=== PATIENT | female | born 1985 | race Caucasian/White ===

== ENCOUNTER 2017-08-21 07:40 | Day surgery (SDC) | payer BC ==
[2017-08-21] MEDS ORDERED: Sodium Chloride 0.9% 10 ML Syringe FLUSH PRN (07:45)
[2017-08-21] MEDS ORDERED: Lactated Ringers 1,000 ML IV SCH (07:45)
[2017-08-21] MEDS ORDERED: Lidocaine 2% 100 MG/5 ML Syringe IVPUSH ONE (09:15)
[2017-08-21] MEDS ORDERED: Propofol 200 MG/20 ML SDV IV ONE (09:15)
--- NOTE | 2017-08-21 10:01 | PCM.OPNOTE ---
- General Post-Op/Procedure Note Date of Surgery/Procedure: 08/21/17 Operative Procedure(s): egd with bx Findings: gastritis esophagitis Pre Op Diagnosis: gerd Post-Op Diagnosis: gastritis. esophagitis Anesthesia Technique: MAC Primary Surgeon: Ishmael Ivory Anesthesia Provider: Pam Johnson ( ) Pathology: stomach distal esophagus Complications: None Condition: Good Free Text/Narrative:: see dictation
--- NOTE | 2017-08-21 11:52 | OR ---
DATE OF OPERATION: 08/21/2017 SURGEON: Ishmael Ivory MD PROCEDURE: Esophagogastroduodenoscopy with cold forceps biopsy. PREOPERATIVE DIAGNOSIS: Symptomatic gastroesophageal reflux disease. POSTOPERATIVE DIAGNOSIS: Gastritis and esophagitis. INDICATIONS FOR PROCEDURE: This is a 32-year-old white female who is referred with the above-mentioned complaints. She was offered and accepted EGD. DESCRIPTION OF PROCEDURE: After an excellent IV sedation was administered, the bite block was inserted. The flexible endoscope was passed without difficulty down the patient's esophagus into the stomach, the stomach was insufflated, scope was passed through the pylorus to the second portion of the duodenum and slowly withdrawn. The following findings were noted. Duodenum was unremarkable. Stomach demonstrated some diffuse gastritis. Multiple biopsies were taken. Distal esophagus, GE junction measured approximately 38 cm, which appears appropriate for a patient of this height. Mild erythema was noted in the distal esophagus and biopsies were taken and submitted in a separate container as well. The remainder of the esophageal exam was unremarkable. Stomach was deflated. Scope was removed. The patient tolerated the procedure well, was taken to recovery room in good condition having tolerated the procedure well. /[id number] /MODL
== END 2017-08-21 10:36 | disposition home or self-care (01) ==
LOC: FB.SDS 07:40
PROVIDERS: ATTEND Surgery
DX: K29.50 Unspecified chronic gastritis without bleeding (principal); K21.0 Gastro-esophageal reflux disease with esophagitis; Z79.899 Other long term (current) drug therapy; Z98.890 Other specified postprocedural states
CPT/HCPCS: 43239; 81025; 88305; 88342; J2704; J7120